=== PATIENT | female | born 1960 | race American Indian/Alaskan Native ===

== ENCOUNTER 2021-10-28 10:56 | Emergency (ER) | payer MEDICAID ==
--- NOTE | 2021-10-28 12:58 | Emergency Department Report ---
Stated Complaint: RIGHT FOOT AND ANKLE SWOLLEN Time Seen by Provider: 10/28/21 12:57 - HPI History of Present Illness: Woke up 2 days ago with right ankle pain and swelling. Denies injury or trauma. - ROS Review of Systems: Right ankle pain - Exam Physical Exam: Alert and oriented x3 MSE screening note: Focused history and physical exam performed. Due to findings the following was ordered: Right ankle x-ray. Patient reevaluated by provider when she gets a room in the back. ED Disposition for MSE Condition: Stable
[2021-10-28 12:59] VITALS: BP 142/86
--- NOTE | 2021-10-28 13:53 | XRay Report ---
RIGHT ANKLE 3 VIEWS INDICATION / CLINICAL INFORMATION: pain and swelling.. COMPARISON: None available. FINDINGS: BONES / JOINT(S): No acute fracture or subluxation. Mild calcaneal spurring. SOFT TISSUES: Mild bimalleolar soft tissue swelling. ADDITIONAL FINDINGS: None. Signer Name: Adam Messer MD Signed: 10/28/2021 1:49 PM Workstation Name: [email or web address]
== END 2021-10-28 13:00 | disposition left against medical advice (07) ==
LOC: ED 10:56
DX: M79.89 Other specified soft tissue disorders (principal); Z53.21 Procedure and treatment not carried out due to patient leaving prior to being seen by health care provider